=== PATIENT | male | born 1955 | race African-American/Black ===

== ENCOUNTER 2017-04-27 09:35 | Inpatient (IN) | payer OTHER ==
[2017-04-27 10:21] LABS: Urine Appearance Cloudy; Urine Blood 3+ (Negative); Urine Color Amber; Urine Ketones Negative (Negative); Urine Protein 2+(100 mg/dL) (Negative); Urine Specific Gravity 1.016 (1.010-1.030); Urine Urobilinogen Negative (Negative)
[2017-04-27 10:31] LABS: Hematocrit 33 % (42-52); Hemoglobin 9.8 g/dl (14.0-18.0); INR 1.1 (0.77-1.02); Mean Corpuscular HGB Conc 30 g/dl (31-36); Mean Corpuscular Hemoglobin 19 pg (27-31); Mean Platelet Volume 9 um3 (7.4-10.4); Platelet Count 221 10^3/ul (150-450); Red Blood Count 5.14 10^6/ul (4.0-5.4); White Blood Count 7.2 10^3/ul (3.5-10.8)
[2017-04-27 10:32] LABS: Mean Corpuscular Volume 64 fL (80-94); Red Cell Distribution Width 25 % (10.5-15)
--- NOTE | 2017-04-27 10:32 | RAD ---
INDICATION: Altered mental status COMPARISON: None. TECHNIQUE: Contiguous axial sections of the brain were obtained from the skull base to the vertex without contrast. FINDINGS: The ventricles, cisterns and sulci are within normal limits. There is mild periventricular and subcortical white matter hypoattenuation most consistent with chronic microvascular disease. Otherwise, the rosenbaum-white matter differentiation is adequately maintained and there is no sulcal effacement. No significant focal abnormality or mass effect is present. There is no evidence for intracranial hemorrhage. No significant focal osseous abnormality is present. There is mild mucosal thickening of the bilateral ethmoid air cells. The mastoid air cells are well aerated bilaterally. IMPRESSION: CT findings are most consistent with chronic microvascular disease without CT evidence of acute intracranial abnormality.
[2017-04-27 10:40] LABS: EGFR Non-African American 38.2 (>60)
[2017-04-27 11:17] LABS: Monocytes % 6 % (0-13)
[2017-04-27 11:21] LABS: ABS Basophils 0 10^3/ul (0-0.2); ABS Eosinophils 0 10^3/ul (0-0.6); ABS Lymphocytes 0.9 10^3/ul (1.0-4.8); ABS Monocytes 0.4 10^3/ul (0-0.8); ABS Neutrophils 5.8 10^3/ul (1.5-7.7); ABS Nucleated RBC 0 10^3/ul
[2017-04-27] MEDS ORDERED: NS 0.9% 1000 ML* 1,000 ML IV SCH (15:15)
[2017-04-27] MEDS ORDERED: Dextrose 50% Syringe 50 ML* 25 GM/50 ML SYRINGE IV PUSH PRN (15:18)
--- NOTE | 2017-04-27 17:02 | RAD ---
INDICATION: Acute kidney injury COMPARISON: None TECHNIQUE: Real-time ultrasound examination of the bilateral kidneys and urinary bladder including grayscale and Doppler color flow analysis. FINDINGS: The right kidney measures 13.4 x 5.4 x 5.5 cm. At the lower pole of the right kidney there is an anechoic and avascular cyst measuring 3.4 cm in greatest dimension. The left kidney measures 13.3 x 5.4 x 0.9 cm. Adjacent to the collecting system is an anechoic and avascular cyst measuring 2.1 cm in greatest dimension. There is at least one shadowing renal calculus identified in the left kidney. Overall there is increased echogenicity of the renal cortices bilaterally. There is no hydronephrosis bilaterally. IMPRESSION: 1. Increased echogenicity of the renal cortices can be seen in the setting of medical renal disease. 2. Nonobstructing renal calculi noted in the left kidney.
[2017-04-27] MEDS: Insulin LISPRO* 1 UNITS UNIT SUBCUT SCH ×2 (17:38→21:45)
--- NOTE | 2017-04-27 17:57 | ED ---
Leighton Fernandez Natalie, scribed for Jason Dumont MD on 04/27/17 at 1004 . Altered Mental Status - HPI Summary HPI Summary: The pt is a 61 y/o M presenting to the ED c/o left rib pain this morning. Per EMS, the patient was found in his cell in [facility]. EMS couldnt get IV access. The pt is able to ambulate, but uses a wheelchair for long distance movement. Pt additionally c/o left leg pain and lethargy. - History Of Current Complaint Chief Complaint: EDAltMentalStatus Stated Complaint: LETHARGY Time Seen by Provider: 04/27/17 09:36 Hx Obtained From: Patient, EMS Onset/Duration: Still Present Timing: Lasting Hours - started this morning Severity Initially: Moderate Severity Currently: Moderate Character: Lethargy Aggravating Factor(s): Nothing Alleviating Factor(s): Nothing - Allergies/Home Medications Home Medications: Home Medications Cetirizine* [ZyrTEC 10 MG TAB*] 10 mg PO DAILY 04/27/17 [History Confirmed 04/27] Docusate CAP* [Colace Cap*] 200 mg PO DAILY 04/27/17 [History Confirmed 04/27/17 ] Insulin GLARGINE(*) [Lantus(*)] 54 units SUBCUT QPM 04/27/17 [History Confirmed 04/27/17] Lisinopril TAB* [Prinivil TAB*] 20 mg PO DAILY 04/27/17 [History Confirmed 04/27] Potassium Chloride [Potassium Chloride ER] 16 meq PO DAILY 04/27/17 [History Confirmed 04/27/17] amLODIPine TAB* [Norvasc 5 mg TAB*] 10 mg PO DAILY 04/27/17 [History Confirmed 04/27/17] metFORMIN* [Glucophage 500 MG TAB *] 500 mg PO DAILY 04/27/17 [History Confirmed 04/27/17] PMH/Surg Hx/FS Hx/Imm Hx Previously Healthy: No Opthamlomology History: Denies: Hx Legally Blind EENT History: Denies: Hx Deafness Infectious Disease History: No Infectious Disease History: Denies: Traveled Outside the [place] in Last 30 Days - Family History Known Family History: Negative: Hypertension, Respiratory Disease Review of Systems Negative: Fever Positive: Chest Pain - left rib pain Positive: Other - left leg pain Neurological: Other - lethargy All Other Systems Reviewed And Are Negative: Yes Physical Exam - Summary Physical Exam Summary: Appearance: The patient is well-nourished in no acute distress and in no acute pain. Skin: The skin is warm and dry and skin color reflects adequate perfusion. HEENT: The head is normocephalic and atraumatic. The pupils are equal and reactive. The conjunctivae are clear and without drainage. Nares are patent and without drainage. Mouth reveals moist mucous membranes and the throat is without erythema and exudate. The external ears are intact. The ear canals are patent and without drainage. The tympanic membranes are intact. Neck: The neck is supple with full range of motion and non-tender. There are no carotid bruits. There is no neck vein distension. Respiratory: Chest is non-tender. Lungs are clear to auscultation and breath sounds are symmetrical and equal. Cardiovascular: The patient has systolic ejection murmur. There is no peripheral edema and pulses are symmetrical and equal. Abdomen: The abdomen is soft and non-tender. There are normal bowel sounds heard in all four quadrants and there is no organomegaly palpated. Musculoskeletal: There is no back tenderness noted. Extremities are non-tender with full range of motion. There is good capillary refill. There is no peripheral edema or calf tenderness elicited. Neurological: The patient is stuporous but responds to voice. The patient has symmetrical motor strength in all four extremities. Cranial nerves are grossly intact. Deep tendon reflexes are symmetrical and equal in all four extremities. Neuro grossly intact. Psychiatric: The patient has an appropriate affect and does not exhibit any anxiety or depression. Triage Information Reviewed: Yes Vital Signs On Initial Exam: Initial Vitals Temp Pulse Resp BP Pulse Ox 97 F 68 16 122/64 100 04/27/17 09:39 04/27/17 09:39 04/27/17 09:39 04/27/17 09:39 04/27/17 09:39 Vital Signs Reviewed: Yes Diagnostics - Vital Signs Vital Signs Temp Pulse Resp BP Pulse Ox 04/27/17 09:39 97 F 68 16 122/64 100 - Laboratory Lab Results: Lab Results 04/27/17 04/27/17 04/27/17 Range/Units 09:50 09:50 09:50 WBC 7.2 (3.5-10.8) 10^3/ul RBC 5.14 (4.0-5.4) 10^6/ul Hgb 9.8 L (14.0-18.0) g/dl Hct 33 L (42-52) % MCV 64 L (80-94) fL MCH 19 L (27-31) pg MCHC 30 L (31-36) g/dl RDW 25 H (10.5-15) % Plt Count 221 (150-450) 10^3/ul MPV 9 (7.4-10.4) um3 Absolute Neuts (auto) 5.8 (1.5-7.7) 10^3/ul Absolute Lymphs (auto) 0.9 L (1.0-4.8) 10^3/ul Absolute Monos (auto) 0.4 (0-0.8) 10^3/ul Absolute Eos (auto) 0 (0-0.6) 10^3/ul Absolute Basos (auto) 0 (0-0.2) 10^3/ul Absolute Nucleated RBC 0 10^3/ul Neutrophils % 81 (38-83) % Lymphocytes % 13 L (25-47) % Monocytes % 6 (0-13) % Normal RBC Morphology Not Reportable Hypochromasia 1+ Microcytosis 1+ Target Cells 1+ Elliptocytes 1+ Acanthocytes (Spur) 1+ INR (Anticoag Therapy) 1.10 H (0.77-1.02) Sodium 136 (133-145) mmol/L Potassium 4.3 (3.5-5.0) mmol/L Chloride 102 (101-111) mmol/L Carbon Dioxide 28 (22-32) mmol/L Anion Gap 6 (2-11) mmol/L BUN 23 (6-24) mg/dL Creatinine 1.82 H (0.67-1.17) mg/dL Est GFR ( Amer) 49.1 (>60) Est GFR (Non-Af Amer) 38.2 (>60) BUN/Creatinine Ratio 12.6 (8-20) Glucose 229 H (70-100) mg/dL POC Glucose (mg/dL) (70-100) mg/dL Lactic Acid (0.5-2.0) mmol/L Calcium 9.5 (8.6-10.3) mg/dL Total Bilirubin 0.40 (0.2-1.0) mg/dL AST 63 H (13-39) U/L ALT 39 (7-52) U/L Alkaline Phosphatase 73 (34-104) U/L Troponin I 0.03 (<0.04) ng/mL Total Protein 8.4 (6.4-8.9) g/dL Albumin 4.0 (3.2-5.2) g/dL Globulin 4.4 H (2-4) g/dL Albumin/Globulin Ratio 0.9 L (1-3) TSH 1.18 (0.34-5.60) mcIU/mL Urine Color Urine Appearance Urine pH (5-9) Ur Specific [place] (1.010-1.030) Urine Protein (Negative) Urine Ketones (Negative) Urine Blood (Negative) Urine Nitrate (Negative) Urine Bilirubin (Negative) Urine Urobilinogen (Negative) Ur Leukocyte Esterase (Negative) Urine WBC (Auto) (Absent) Urine RBC (Auto) (Absent) Urine Bacteria (Absent) Hyaline Casts (Absent) Urine Glucose (Negative) Urine Opiates Screen (None Detect) Ur Barbiturates Screen (None Detect) Ur Phencyclidine Scrn (None Detect) Ur Amphetamines Screen (None Detect) U Benzodiazepines Scrn (None Detect) Urine Cocaine Screen (None Detect) U Cannabinoids Screen (None Detect) Serum Alcohol < 10 (<10) mg/dL 04/27/17 04/27/17 04/27/17 Range/Units 09:50 09:53 10:04 WBC (3.5-10.8) 10^3/ul RBC (4.0-5.4) 10^6/ul Hgb (14.0-18.0) g/dl Hct (42-52) % MCV (80-94) fL MCH (27-31) pg MCHC (31-36) g/dl RDW (10.5-15) % Plt Count (150-450) 10^3/ul MPV (7.4-10.4) um3 Absolute Neuts (auto) (1.5-7.7) 10^3/ul Absolute Lymphs (auto) (1.0-4.8) 10^3/ul Absolute Monos (auto) (0-0.8) 10^3/ul Absolute Eos (auto) (0-0.6) 10^3/ul Absolute Basos (auto) (0-0.2) 10^3/ul Absolute Nucleated RBC 10^3/ul Neutrophils % (38-83) % Lymphocytes % (25-47) % Monocytes % (0-13) % Normal RBC Morphology Hypochromasia Microcytosis Target Cells Elliptocytes Acanthocytes (Spur) INR (Anticoag Therapy) (0.77-1.02) Sodium (133-145) mmol/L Potassium (3.5-5.0) mmol/L Chloride (101-111) mmol/L Carbon Dioxide (22-32) mmol/L Anion Gap (2-11) mmol/L BUN (6-24) mg/dL Creatinine (0.67-1.17) mg/dL Est GFR ( Amer) (>60) Est GFR (Non-Af Amer) (>60) BUN/Creatinine Ratio (8-20) Glucose (70-100) mg/dL POC Glucose (mg/dL) 251 H (70-100) mg/dL Lactic Acid 2.3 H* (0.5-2.0) mmol/L Calcium (8.6-10.3) mg/dL Total Bilirubin (0.2-1.0) mg/dL AST (13-39) U/L ALT (7-52) U/L Alkaline Phosphatase (34-104) U/L Troponin I (<0.04) ng/mL Total Protein (6.4-8.9) g/dL Albumin (3.2-5.2) g/dL Globulin (2-4) g/dL Albumin/Globulin Ratio (1-3) TSH (0.34-5.60) mcIU/mL Urine Color Urine Appearance Urine pH (5-9) Ur Specific [place] (1.010-1.030) Urine Protein (Negative) Urine Ketones (Negative) Urine Blood (Negative) Urine Nitrate (Negative) Urine Bilirubin (Negative) Urine Urobilinogen (Negative) Ur Leukocyte Esterase (Negative) Urine WBC (Auto) (Absent) Urine RBC (Auto) (Absent) Urine Bacteria (Absent) Hyaline Casts (Absent) Urine Glucose (Negative) Urine Opiates Screen None detected (None Detect) Ur Barbiturates Screen None detected (None Detect) Ur Phencyclidine Scrn None detected (None Detect) Ur Amphetamines Screen None detected (None Detect) U Benzodiazepines Scrn None detected (None Detect) Urine Cocaine Screen None detected (None Detect) U Cannabinoids Screen None detected (None Detect) Serum Alcohol (<10) mg/dL 04/27/17 Range/Units 10:04 WBC (3.5-10.8) 10^3/ul RBC (4.0-5.4) 10^6/ul Hgb (14.0-18.0) g/dl Hct (42-52) % MCV (80-94) fL MCH (27-31) pg MCHC (31-36) g/dl RDW (10.5-15) % Plt Count (150-450) 10^3/ul MPV (7.4-10.4) um3 Absolute Neuts (auto) (1.5-7.7) 10^3/ul Absolute Lymphs (auto) (1.0-4.8) 10^3/ul Absolute Monos (auto) (0-0.8) 10^3/ul Absolute Eos (auto) (0-0.6) 10^3/ul Absolute Basos (auto) (0-0.2) 10^3/ul Absolute Nucleated RBC 10^3/ul Neutrophils % (38-83) % Lymphocytes % (25-47) % Monocytes % (0-13) % Normal RBC Morphology Hypochromasia Microcytosis Target Cells Elliptocytes Acanthocytes (Spur) INR (Anticoag Therapy) (0.77-1.02) Sodium (133-145) mmol/L Potassium (3.5-5.0) mmol/L Chloride (101-111) mmol/L Carbon Dioxide (22-32) mmol/L Anion Gap (2-11) mmol/L BUN (6-24) mg/dL Creatinine (0.67-1.17) mg/dL Est GFR ( Amer) (>60) Est GFR (Non-Af Amer) (>60) BUN/Creatinine Ratio (8-20) Glucose (70-100) mg/dL POC Glucose (mg/dL) (70-100) mg/dL Lactic Acid (0.5-2.0) mmol/L Calcium (8.6-10.3) mg/dL Total Bilirubin (0.2-1.0) mg/dL AST (13-39) U/L ALT (7-52) U/L Alkaline Phosphatase (34-104) U/L Troponin I (<0.04) ng/mL Total Protein (6.4-8.9) g/dL Albumin (3.2-5.2) g/dL Globulin (2-4) g/dL Albumin/Globulin Ratio (1-3) TSH (0.34-5.60) mcIU/mL Urine Color [place] Urine Appearance Cloudy Urine pH 5.0 (5-9) Ur Specific [place] 1.016 (1.010-1.030) Urine Protein 2+(100 mg/dl) H (Negative) Urine Ketones Negative (Negative) Urine Blood 3+ H (Negative) Urine Nitrate Negative (Negative) Urine Bilirubin Negative (Negative) Urine Urobilinogen Negative (Negative) Ur Leukocyte Esterase Negative (Negative) Urine WBC (Auto) 1+(6-10/hpf) H (Absent) Urine RBC (Auto) Trace(0-2/hpf) (Absent) Urine Bacteria Absent (Absent) Hyaline Casts Present H (Absent) Urine Glucose 1+(50 mg/dl) H (Negative) Urine Opiates Screen (None Detect) Ur Barbiturates Screen (None Detect) Ur Phencyclidine Scrn (None Detect) Ur Amphetamines Screen (None Detect) U Benzodiazepines Scrn (None Detect) Urine Cocaine Screen (None Detect) U Cannabinoids Screen (None Detect) Serum Alcohol (<10) mg/dL Result Diagrams: 04/27/17 09:50 04/27/17 09:50 Lab Statement: Any lab studies that have been ordered have been reviewed, and results considered in the medical decision making process. - CT Brain CT CT Interpretation: Positive (See Comments) - CT findings are most consistent with chronic microvascular disease without CT evidence of acute intracranial abnormality. ED physician has reviewed this report. CT Interpretation Completed By: Radiologist - EKG 09:41 Cardiac Rate: NL EKG Rhythm: Sinus Rhythm - 61 BPM EKG Interpretation: Nml . LBBB. Altered Mental Statu Course/Dx - Course Course Of Treatment: Mr. Pressley presents with a difficult evaluation. He doesn' t give a good history as he is confused (he variously tells me he has left neck , chest or leg pain). His W/U is nonspecific and he is being admitted for further W/U to the hospitalist service. - Diagnoses Discharge Diagnoses: Altered mental status Discharge - Discharge Plan Condition: Stable Disposition: ADMITTED TO [facility] The documentation as recorded by the Leighton thomas Natalie accurately reflects the service I personally performed and the decisions made by me, Jason Dumont MD.
[2017-04-27] MEDS ORDERED: Insulin GLARGINE(*) 1 UNITS UNIT SUBCUT SCH (18:00)
--- NOTE | 2017-04-27 20:18 | HP ---
CC: Dr. Fregoso / [place] * HISTORY AND PHYSICAL: DATE OF ADMISSION: 04/27/17 PRIMARY CARE PROVIDER: Dr. Fregoso. CHIEF COMPLAINT: Altered mental status. HISTORY OF PRESENT ILLNESS: Mr. Pressley is a 61-year-old male, who is currently incarcerated at [facility], who also has a history of type 2 diabetes and hypertension, who presents to the emergency room with altered mental status. The patient is quite sleepy upon my entering the room. He does awaken and attempts to answer questions; however, he does not appear to answer questions appropriately. I have a difficult time understanding what he is trying to tell me. The patient does state, however, he felt fine over the last few days, but does not know what happened on the day of admission. He denies any shortness of breath at this point. He is able to tell me his left shoulder hurts, but that is chronic. The rest of his history is really unobtainable as the patient is not making any sense. PAST MEDICAL HISTORY: 1. Type 2 diabetes. 2. Hypertension. 3. History of hepatitis, though this is not specified in the paperwork from [place]. 4. Positive PPD. PAST SURGICAL HISTORY: Unknown. MEDICATIONS: 1. Metformin 500 mg p.o. daily. 2. Norvasc 10 mg p.o. daily. 3. Lisinopril 20 mg p.o. daily. 4. Potassium chloride 8 mEq, 2 tabs p.o. daily. 5. Lantus 54 units subcutaneous q.h.s. 6. Colace 200 mg p.o. daily. 7. Zyrtec 10 mg p.o. daily. ALLERGIES: Are not recorded and the patient at this point is not able to tell me what he is allergic to. FAMILY HISTORY: Unobtainable. SOCIAL HISTORY: The patient is able to tell me he has smoked in the past. He is unable to tell me how long he has smoked for. He is currently incarcerated at [facility]. REVIEW OF SYSTEMS: Attempted review of systems is as per HPI. Otherwise, the patient does not provider reliable answers to the rest of my questions. PHYSICAL EXAMINATION GENERAL: The patient is a well-developed, middle-aged male, lying flat in the bed, somnolent, but arousable, and in no acute distress. VITAL SIGNS: Blood pressure 101/65, pulse 74, respirations 13, temp 97, O2 sat 96% on room air. HEENT: The left pupil is smaller than the right. Extraocular muscles appear to be intact. Oropharynx is clear. Oral mucosa is moist. The patient has very poor dentition. There is no submandibular, cervical, or supraclavicular adenopathy. Thyroid is not enlarged. No thyroid nodules are noted. PULMONARY: Breath sounds are diminished in all lung trinh, but appear to be clear. CARDIAC: Normal S1, S2. Regular rate and rhythm with a 2/6 systolic murmur heard best at the left mid sternal border. There is no lower extremity edema. ABDOMEN: Bowel sounds are present. Abdomen is soft, nontender, nondistended. MUSCULOSKELETAL: The patient is handcuffed via the right arm to the bed and has shackles on his ankles. No obvious joint deformities are noted. NEURO: Cranial nerves II through XII are grossly intact. Sensation appears to be intact. Strength is not tested due to the patient being shackled and handcuffed to the bed. PSYCH: The patient is somnolent, but arousable. He is confused. SKIN: Warm and dry. I do not appreciate any rashes or wounds. DIAGNOSTIC STUDIES/LAB DATA: WBC 7.2, hemoglobin 9.8, hematocrit 33, platelets 221. INR 1.10. Sodium 136, potassium 4.3, chloride 102, CO2 28, BUN 23, creatinine 1.82, glucose 229, lactic acid 2.3, calcium 9.5. Bilirubin 0.4, AST 63, ALT 39, alk phos 73. Troponin 0.03. Albumin 4.0. TSH 1.18. Urinalysis reveals cloudy urine with specific gravity of 1.016, 2+ protein, 3+ blood, 1+ wbc, positive for hyaline cast. Urine drug screen negative, serum alcohol less than 10. EKG reveals normal sinus rhythm with intraventricular conduction delay, but no acute ST-T wave abnormalities. CT brain most consistent with chronic microvascular disease without CT evidence of acute intracranial abnormality. ASSESSMENT AND PLAN: Mr. Pressley is a 61-year-old male, who has a history of type 2 diabetes and hypertension who presents to the emergency room with altered mental status and lethargy. 1. Altered mental status with lethargy. The etiology of this is not clear. The patient's lab work does not reveal any direct evidence for the cause of this. I will go ahead and check an ammonia level. The patient does have a mildly elevated lactic acid of 2.3 and creatinine of 1.82 is greater than his baseline in December 2016 of 0.75. Perhaps, the patient is just dehydrated. I am concerned that perhaps he could have gotten in to an illicit substance. The patient does deny this. The patient will be hydrated overnight and his mental status will be monitored. Neuro checks will be obtained every 4 hours. If the patient fails to respond, we would consider an EEG; however, we will need to get a neuro consult to get this performed over the weekend. There are no clear signs of infection at this point. Thus, I will hold off on antibiotic therapy. 2. Hypertension. The patient's blood pressure is under excellent control. In fact, he is on the lower side. I am going to hold his lisinopril as his creatinine is elevated; however, I will continue his amlodipine withhold parameters. 3. Acute kidney injury. The patient's baseline creatinine is 0.75. His creatinine on admission today is greater than 2 times his baseline. The patient will be receiving normal saline at 125 mL per hour. Followup BMP will be obtained tomorrow morning. The patient's BUN is not significantly elevated and therefore I do not believe that this is likely contributing to his altered mental status. I suspect his acute kidney injury is secondary to volume depletion especially given the elevated lactic acid. 4. Type 2 diabetes. The patient's blood sugars will be monitored a.c., h.s. The patient will be on only a clear liquid diet for now given his lethargy and lack of safety of swallowing. The patient will be maintained on his usual dose of Lantus and will have a lispro sliding scale. His metformin will be held. With the patient's creatinine greater than 1.5, it is possible that metformin may have led to the mild lactic acidosis. 5. DVT prophylaxis. According to the Adult Thrombosis Prophylaxis Risk Factor Assessment Guide, the patient has a total risk factor score of 2, making him moderate risk. He will be placed on heparin 5000 units subcutaneous q.8 hours. 6. Code status is full. TIME SPENT: Sixty-five minutes was spent admitting this patient. [id number]/[facility] #: [id number]
[2017-04-27] MEDS: Heparin VIAL(*) 5000 UNITS/ML VIAL (FIVE THOUSAND) SUBCUT SCH (21:41)
[2017-04-28] MEDS: Heparin VIAL(*) 5000 UNITS/ML VIAL (FIVE THOUSAND) SUBCUT SCH ×3 (05:36→21:16)
[2017-04-28] MEDS: Insulin LISPRO* 1 UNITS UNIT SUBCUT SCH ×4 (08:16→21:14)
[2017-04-28 08:21] LABS: Hematocrit 30 % (42-52); Hemoglobin 9.1 g/dl (14.0-18.0); Mean Corpuscular HGB Conc 30 g/dl (31-36); Mean Corpuscular Hemoglobin 19 pg (27-31); Mean Corpuscular Volume 63 fL (80-94); Mean Platelet Volume 8 um3 (7.4-10.4); Platelet Count 191 10^3/ul (150-450); Red Blood Count 4.79 10^6/ul (4.0-5.4); Red Cell Distribution Width 24 % (10.5-15); White Blood Count 6.8 10^3/ul (3.5-10.8)
[2017-04-28] MEDS: Docusate CAP* 100 MG PO SCH (08:32)
[2017-04-28] MEDS: amLODIPine TAB* 5 MG PO SCH (08:32)
[2017-04-28 08:39] LABS: EGFR Non-African American 81.9 (>60)
[2017-04-28] MEDS ORDERED: Potassium Chlor TAB* 20 MEQ TAB.ER PO ONE (08:42)
--- NOTE | 2017-04-28 08:47 | PN ---
Subjective Date of Service: 04/28/17 Interval History: Pt is feeling well this AM. He wants "real food." He denies any pain. No SOB. The intermediate guards do not think he is at his baseline mental status. Objective Active Medications: Amlodipine Besylate (Norvasc Tab*) 10 mg PO DAILY [facility] Last Admin: 04/28/17 08:32 Dose: 10 mg Dextrose (D50w Syringe 50 Ml*) 12.5 gm IV PUSH .FOR FS < 60 - SS PRN PRN Reason: FS < 60 Docusate Sodium (Colace Cap*) 200 mg PO DAILY [facility] Last Admin: 04/28/17 08:32 Dose: 200 mg Heparin Sodium (Porcine) (Heparin Vial(*)) 5,000 units SUBCUT Q8HR [facility] Last Admin: 04/28/17 05:36 Dose: 5,000 units Sodium Chloride (Ns 0.9% 1000 Ml*) 1,000 mls @ 125 mls/hr IV PER RATE [facility] Last Admin: 04/27/17 17:52 Dose: 125 mls/hr Insulin Glargine (Lantus(*)) 54 units SUBCUT QPM [facility] Last Admin: 04/27/17 17:54 Dose: 54 unit Insulin Human Lispro (Humalog*) 0 units SUBCUT ACHS [facility] PRN Reason: Protocol Last Admin: 04/28/17 08:16 Dose: Not Given Vital Signs - 8 hr 04/28/17 06:28 Temperature 97.7 F Pulse Rate 59 Respiratory 17 Rate Blood Pressure 147/70 (mmHg) O2 Sat by Pulse 100 Oximetry Oxygen Devices in Use Now: None Appearance: Middle aged male sitting up in bed, awake, alert, NAD Eyes: No Scleral Icterus Ears/Nose/Mouth/Throat: Mucous Membranes Moist Respiratory: Symmetrical Chest Expansion and Respiratory Effort, Clear to Auscultation Cardiovascular: RRR, No Edema, - - III/ systolic murmur heard best at the L mid sternal border Abdominal: NL Sounds; No Tenderness; No Distention Extremities: No Clubbing, Cyanosis Skin: No Rash or Ulcers, No Nodules or Sclerosis Neurological: - - alert, oriented to being in a hospital but no clear which one , when asked if he had been eating/drinking normally he stated no as he had no money to go to the store to buy food but then when I asked him if he got fed at the intermediate he stated yes and that he had been eating Result Diagrams: 04/28/17 08:08 04/28/17 08:08 Additional Lab and Data: Lab Results 04/27/17 04/27/17 04/27/17 Range/Units 09:50 09:50 09:50 WBC 7.2 (3.5-10.8) 10^3/ul RBC 5.14 (4.0-5.4) 10^6/ul Hgb 9.8 L (14.0-18.0) g/dl Hct 33 L (42-52) % MCV 64 L (80-94) fL MCH 19 L (27-31) pg MCHC 30 L (31-36) g/dl RDW 25 H (10.5-15) % Plt Count 221 (150-450) 10^3/ul MPV 9 (7.4-10.4) um3 Absolute Neuts (auto) 5.8 (1.5-7.7) 10^3/ul Absolute Lymphs (auto) 0.9 L (1.0-4.8) 10^3/ul Absolute Monos (auto) 0.4 (0-0.8) 10^3/ul Absolute Eos (auto) 0 (0-0.6) 10^3/ul Absolute Basos (auto) 0 (0-0.2) 10^3/ul Absolute Nucleated RBC 0 10^3/ul Neutrophils % 81 (38-83) % Lymphocytes % 13 L (25-47) % Monocytes % 6 (0-13) % Normal RBC Morphology Not Reportable Hypochromasia 1+ Microcytosis 1+ Target Cells 1+ Elliptocytes 1+ Acanthocytes (Spur) 1+ INR (Anticoag Therapy) 1.10 H (0.77-1.02) Sodium 136 (133-145) mmol/L Potassium 4.3 (3.5-5.0) mmol/L Chloride 102 (101-111) mmol/L Carbon Dioxide 28 (22-32) mmol/L Anion Gap 6 (2-11) mmol/L BUN 23 (6-24) mg/dL Creatinine 1.82 H (0.67-1.17) mg/dL Est GFR ( Amer) 49.1 (>60) Est GFR (Non-Af Amer) 38.2 (>60) BUN/Creatinine Ratio 12.6 (8-20) Glucose 229 H (70-100) mg/dL POC Glucose (mg/dL) (70-100) mg/dL Lactic Acid (0.5-2.0) mmol/L Calcium 9.5 (8.6-10.3) mg/dL Total Bilirubin 0.40 (0.2-1.0) mg/dL AST 63 H (13-39) U/L ALT 39 (7-52) U/L Alkaline Phosphatase 73 (34-104) U/L Troponin I 0.03 (<0.04) ng/mL Total Protein 8.4 (6.4-8.9) g/dL Albumin 4.0 (3.2-5.2) g/dL Globulin 4.4 H (2-4) g/dL Albumin/Globulin Ratio 0.9 L (1-3) TSH 1.18 (0.34-5.60) mcIU/mL Urine Color Urine Appearance Urine pH (5-9) Ur Specific [place] (1.010-1.030) Urine Protein (Negative) Urine Ketones (Negative) Urine Blood (Negative) Urine Nitrate (Negative) Urine Bilirubin (Negative) Urine Urobilinogen (Negative) Ur Leukocyte Esterase (Negative) Urine WBC (Auto) (Absent) Urine RBC (Auto) (Absent) Urine Bacteria (Absent) Hyaline Casts (Absent) Urine Glucose (Negative) Urine Opiates Screen (None Detect) Ur Barbiturates Screen (None Detect) Ur Phencyclidine Scrn (None Detect) Ur Amphetamines Screen (None Detect) U Benzodiazepines Scrn (None Detect) Urine Cocaine Screen (None Detect) U Cannabinoids Screen (None Detect) Serum Alcohol < 10 (<10) mg/dL 04/27/17 04/27/17 04/27/17 Range/Units 09:50 09:53 10:04 WBC (3.5-10.8) 10^3/ul RBC (4.0-5.4) 10^6/ul Hgb (14.0-18.0) g/dl Hct (42-52) % MCV (80-94) fL MCH (27-31) pg MCHC (31-36) g/dl RDW (10.5-15) % Plt Count (150-450) 10^3/ul MPV (7.4-10.4) um3 Absolute Neuts (auto) (1.5-7.7) 10^3/ul Absolute Lymphs (auto) (1.0-4.8) 10^3/ul Absolute Monos (auto) (0-0.8) 10^3/ul Absolute Eos (auto) (0-0.6) 10^3/ul Absolute Basos (auto) (0-0.2) 10^3/ul Absolute Nucleated RBC 10^3/ul Neutrophils % (38-83) % Lymphocytes % (25-47) % Monocytes % (0-13) % Normal RBC Morphology Hypochromasia Microcytosis Target Cells Elliptocytes Acanthocytes (Spur) INR (Anticoag Therapy) (0.77-1.02) Sodium (133-145) mmol/L Potassium (3.5-5.0) mmol/L Chloride (101-111) mmol/L Carbon Dioxide (22-32) mmol/L Anion Gap (2-11) mmol/L BUN (6-24) mg/dL Creatinine (0.67-1.17) mg/dL Est GFR ( Amer) (>60) Est GFR (Non-Af Amer) (>60) BUN/Creatinine Ratio (8-20) Glucose (70-100) mg/dL POC Glucose (mg/dL) 251 H (70-100) mg/dL Lactic Acid 2.3 H* (0.5-2.0) mmol/L Calcium (8.6-10.3) mg/dL Total Bilirubin (0.2-1.0) mg/dL AST (13-39) U/L ALT (7-52) U/L Alkaline Phosphatase (34-104) U/L Troponin I (<0.04) ng/mL Total Protein (6.4-8.9) g/dL Albumin (3.2-5.2) g/dL Globulin (2-4) g/dL Albumin/Globulin Ratio (1-3) TSH (0.34-5.60) mcIU/mL Urine Color Urine Appearance Urine pH (5-9) Ur Specific [place] (1.010-1.030) Urine Protein (Negative) Urine Ketones (Negative) Urine Blood (Negative) Urine Nitrate (Negative) Urine Bilirubin (Negative) Urine Urobilinogen (Negative) Ur Leukocyte Esterase (Negative) Urine WBC (Auto) (Absent) Urine RBC (Auto) (Absent) Urine Bacteria (Absent) Hyaline Casts (Absent) Urine Glucose (Negative) Urine Opiates Screen None detected (None Detect) Ur Barbiturates Screen None detected (None Detect) Ur Phencyclidine Scrn None detected (None Detect) Ur Amphetamines Screen None detected (None Detect) U Benzodiazepines Scrn None detected (None Detect) Urine Cocaine Screen None detected (None Detect) U Cannabinoids Screen None detected (None Detect) Serum Alcohol (<10) mg/dL 04/27/17 Range/Units 10:04 WBC (3.5-10.8) 10^3/ul RBC (4.0-5.4) 10^6/ul Hgb (14.0-18.0) g/dl Hct (42-52) % MCV (80-94) fL MCH (27-31) pg MCHC (31-36) g/dl RDW (10.5-15) % Plt Count (150-450) 10^3/ul MPV (7.4-10.4) um3 Absolute Neuts (auto) (1.5-7.7) 10^3/ul Absolute Lymphs (auto) (1.0-4.8) 10^3/ul Absolute Monos (auto) (0-0.8) 10^3/ul Absolute Eos (auto) (0-0.6) 10^3/ul Absolute Basos (auto) (0-0.2) 10^3/ul Absolute Nucleated RBC 10^3/ul Neutrophils % (38-83) % Lymphocytes % (25-47) % Monocytes % (0-13) % Normal RBC Morphology Hypochromasia Microcytosis Target Cells Elliptocytes Acanthocytes (Spur) INR (Anticoag Therapy) (0.77-1.02) Sodium (133-145) mmol/L Potassium (3.5-5.0) mmol/L Chloride (101-111) mmol/L Carbon Dioxide (22-32) mmol/L Anion Gap (2-11) mmol/L BUN (6-24) mg/dL Creatinine (0.67-1.17) mg/dL Est GFR ( Amer) (>60) Est GFR (Non-Af Amer) (>60) BUN/Creatinine Ratio (8-20) Glucose (70-100) mg/dL POC Glucose (mg/dL) (70-100) mg/dL Lactic Acid (0.5-2.0) mmol/L Calcium (8.6-10.3) mg/dL Total Bilirubin (0.2-1.0) mg/dL AST (13-39) U/L ALT (7-52) U/L Alkaline Phosphatase (34-104) U/L Troponin I (<0.04) ng/mL Total Protein (6.4-8.9) g/dL Albumin (3.2-5.2) g/dL Globulin (2-4) g/dL Albumin/Globulin Ratio (1-3) TSH (0.34-5.60) mcIU/mL Urine Color Kassy Urine Appearance Cloudy Urine pH 5.0 (5-9) Ur Specific [place] 1.016 (1.010-1.030) Urine Protein 2+(100 mg/dl) H (Negative) Urine Ketones Negative (Negative) Urine Blood 3+ H (Negative) Urine Nitrate Negative (Negative) Urine Bilirubin Negative (Negative) Urine Urobilinogen Negative (Negative) Ur Leukocyte Esterase Negative (Negative) Urine WBC (Auto) 1+(6-10/hpf) H (Absent) Urine RBC (Auto) Trace(0-2/hpf) (Absent) Urine Bacteria Absent (Absent) Hyaline Casts Present H (Absent) Urine Glucose 1+(50 mg/dl) H (Negative) Urine Opiates Screen (None Detect) Ur Barbiturates Screen (None Detect) Ur Phencyclidine Scrn (None Detect) Ur Amphetamines Screen (None Detect) U Benzodiazepines Scrn (None Detect) Urine Cocaine Screen (None Detect) U Cannabinoids Screen (None Detect) Serum Alcohol (<10) mg/dL Assess/Plan/Problems-Billing Mr Pressley is a 61 yo M currently incarcerated at [facility] who has a h/o HTN and type II DM who was brought to the ER for lethargy and confusion. - Patient Problems (1) Altered mental state Current Visit: Yes Status: Acute Code(s): R41.82 - ALTERED MENTAL STATUS, UNSPECIFIED SNOMED Code(s): 075618833 Comment: Unclear what has led to his AMS. Lab work except the elevated creatinine was normal. I question mild dehydration as the cause of some of his lethargy/confusion. This am he remains confused but he has been hypoglycemic. Will get blood sugars improved and follow up his mental status. If better by this afternoon will d/c pt back to the intermediate. CT brain negative for acute finding and no evidence of infection. Ammonia level normal. (2) Type II diabetes mellitus Current Visit: Yes Status: Acute Comment: Blood sugar this AM quite low but he was not with it last night to eat much. Will monitor blood sugars this AM and if stable this afternoon possibly home if his mental status is improved further. (3) HTN (hypertension) Current Visit: Yes Status: Acute Code(s): I10 - ESSENTIAL (PRIMARY) HYPERTENSION SNOMED Code(s): 91040502 Comment: BP mildly elevated. Will monitor BP through today after he receives his morning medications. (4) STAN (acute kidney injury) Current Visit: Yes Status: Acute Code(s): N17.9 - ACUTE KIDNEY FAILURE, UNSPECIFIED SNOMED Code(s): 57217563 Comment: Likely pre-renal as the patient's creatinine has normalized with IVF hydration. Renal ultrasound negative for obstruction. (5) DVT prophylaxis Current Visit: Yes Status: Acute Code(s): JHB2992 - SNOMED Code(s): 405610917 Comment: SQ heparin (6) Full code status Current Visit: Yes Status: Acute Code(s): Z78.9 - OTHER SPECIFIED HEALTH STATUS SNOMED Code(s): 248926299
[2017-04-28] MEDS ORDERED: Lisinopril TAB* 10 MG PO SCH (09:00)
[2017-04-28] MEDS ORDERED: Insulin GLARGINE(*) 1 UNITS UNIT SUBCUT SCH (21:00)
[2017-04-28] MEDS ORDERED: Acetaminophen TAB* 325 MG ONE (21:08)
[2017-04-28] MEDS: Acetaminophen TAB* 325 MG PO PRN (21:12)
[2017-04-29] MEDS: Heparin VIAL(*) 5000 UNITS/ML VIAL (FIVE THOUSAND) SUBCUT SCH ×3 (05:50→21:40)
[2017-04-29] MEDS: Insulin LISPRO* 1 UNITS UNIT SUBCUT SCH ×4 (08:04→21:39)
[2017-04-29] MEDS: amLODIPine TAB* 5 MG PO SCH (10:01)
[2017-04-29] MEDS: Docusate CAP* 100 MG PO SCH (10:01)
--- NOTE | 2017-04-29 11:14 | PN ---
Subjective Date of Service: 04/29/17 Interval History: Pt is feeling poorly. When asked why he states he is hungry and he feels cold. He denies headache, cough, sputum, dysuria. Objective Active Medications: Acetaminophen (Tylenol Tab*) 650 mg PO Q4H PRN PRN Reason: PAIN Last Admin: 04/28/17 21:12 Dose: 650 mg Amlodipine Besylate (Norvasc Tab*) 10 mg PO DAILY [facility] Last Admin: 04/29/17 10:01 Dose: 10 mg Dextrose (D50w Syringe 50 Ml*) 12.5 gm IV PUSH .FOR FS < 60 - SS PRN PRN Reason: FS < 60 Docusate Sodium (Colace Cap*) 200 mg PO DAILY [facility] Last Admin: 04/29/17 10:01 Dose: 200 mg Heparin Sodium (Porcine) (Heparin Vial(*)) 5,000 units SUBCUT Q8HR [facility] Last Admin: 04/29/17 05:50 Dose: 5,000 units Sodium Chloride (Ns 0.9% 1000 Ml*) 1,000 mls @ 125 mls/hr IV PER RATE [facility] Last Admin: 04/27/17 17:52 Dose: 125 mls/hr Insulin Glargine (Lantus(*)) 40 units SUBCUT QPM [facility] Last Admin: 04/28/17 21:16 Dose: 40 units Insulin Human Lispro (Humalog*) 0 units SUBCUT ACHS [facility] PRN Reason: Protocol Last Admin: 04/29/17 08:04 Dose: Not Given Vital Signs - 8 hr 04/29/17 04/29/17 04/29/17 03:17 07:54 07:56 Temperature 99.4 F 98.5 F Pulse Rate 68 36 Respiratory 16 16 16 Rate Blood Pressure 148/52 119/56 (mmHg) O2 Sat by Pulse 100 100 Oximetry 04/29/17 08:02 Temperature Pulse Rate 60 Respiratory Rate Blood Pressure (mmHg) O2 Sat by Pulse Oximetry Oxygen Devices in Use Now: None Appearance: Middle aged male lying in bed, NAD Eyes: No Scleral Icterus Ears/Nose/Mouth/Throat: Mucous Membranes Moist Respiratory: Symmetrical Chest Expansion and Respiratory Effort, Clear to Auscultation Cardiovascular: NL Sounds; No Murmurs; No JVD, RRR, No Edema Abdominal: NL Sounds; No Tenderness; No Distention Extremities: No Clubbing, Cyanosis Skin: No Rash or Ulcers, No Nodules or Sclerosis Neurological: Alert and Oriented x 3 Result Diagrams: 04/28/17 08:08 04/28/17 08:08 Additional Lab and Data: Lab Results 04/27/17 04/27/17 04/27/17 Range/Units 09:50 09:50 09:50 WBC 7.2 (3.5-10.8) 10^3/ul RBC 5.14 (4.0-5.4) 10^6/ul Hgb 9.8 L (14.0-18.0) g/dl Hct 33 L (42-52) % MCV 64 L (80-94) fL MCH 19 L (27-31) pg MCHC 30 L (31-36) g/dl RDW 25 H (10.5-15) % Plt Count 221 (150-450) 10^3/ul MPV 9 (7.4-10.4) um3 Absolute Neuts (auto) 5.8 (1.5-7.7) 10^3/ul Absolute Lymphs (auto) 0.9 L (1.0-4.8) 10^3/ul Absolute Monos (auto) 0.4 (0-0.8) 10^3/ul Absolute Eos (auto) 0 (0-0.6) 10^3/ul Absolute Basos (auto) 0 (0-0.2) 10^3/ul Absolute Nucleated RBC 0 10^3/ul Neutrophils % 81 (38-83) % Lymphocytes % 13 L (25-47) % Monocytes % 6 (0-13) % Normal RBC Morphology Not Reportable Hypochromasia 1+ Microcytosis 1+ Target Cells 1+ Elliptocytes 1+ Acanthocytes (Spur) 1+ INR (Anticoag Therapy) 1.10 H (0.77-1.02) Sodium 136 (133-145) mmol/L Potassium 4.3 (3.5-5.0) mmol/L Chloride 102 (101-111) mmol/L Carbon Dioxide 28 (22-32) mmol/L Anion Gap 6 (2-11) mmol/L BUN 23 (6-24) mg/dL Creatinine 1.82 H (0.67-1.17) mg/dL Est GFR ( Amer) 49.1 (>60) Est GFR (Non-Af Amer) 38.2 (>60) BUN/Creatinine Ratio 12.6 (8-20) Glucose 229 H (70-100) mg/dL POC Glucose (mg/dL) (70-100) mg/dL Lactic Acid (0.5-2.0) mmol/L Calcium 9.5 (8.6-10.3) mg/dL Total Bilirubin 0.40 (0.2-1.0) mg/dL AST 63 H (13-39) U/L ALT 39 (7-52) U/L Alkaline Phosphatase 73 (34-104) U/L Troponin I 0.03 (<0.04) ng/mL Total Protein 8.4 (6.4-8.9) g/dL Albumin 4.0 (3.2-5.2) g/dL Globulin 4.4 H (2-4) g/dL Albumin/Globulin Ratio 0.9 L (1-3) TSH 1.18 (0.34-5.60) mcIU/mL Urine Color Urine Appearance Urine pH (5-9) Ur Specific [place] (1.010-1.030) Urine Protein (Negative) Urine Ketones (Negative) Urine Blood (Negative) Urine Nitrate (Negative) Urine Bilirubin (Negative) Urine Urobilinogen (Negative) Ur Leukocyte Esterase (Negative) Urine WBC (Auto) (Absent) Urine RBC (Auto) (Absent) Urine Bacteria (Absent) Hyaline Casts (Absent) Urine Glucose (Negative) Urine Opiates Screen (None Detect) Ur Barbiturates Screen (None Detect) Ur Phencyclidine Scrn (None Detect) Ur Amphetamines Screen (None Detect) U Benzodiazepines Scrn (None Detect) Urine Cocaine Screen (None Detect) U Cannabinoids Screen (None Detect) Serum Alcohol < 10 (<10) mg/dL 04/27/17 04/27/17 04/27/17 Range/Units 09:50 09:53 10:04 WBC (3.5-10.8) 10^3/ul RBC (4.0-5.4) 10^6/ul Hgb (14.0-18.0) g/dl Hct (42-52) % MCV (80-94) fL MCH (27-31) pg MCHC (31-36) g/dl RDW (10.5-15) % Plt Count (150-450) 10^3/ul MPV (7.4-10.4) um3 Absolute Neuts (auto) (1.5-7.7) 10^3/ul Absolute Lymphs (auto) (1.0-4.8) 10^3/ul Absolute Monos (auto) (0-0.8) 10^3/ul Absolute Eos (auto) (0-0.6) 10^3/ul Absolute Basos (auto) (0-0.2) 10^3/ul Absolute Nucleated RBC 10^3/ul Neutrophils % (38-83) % Lymphocytes % (25-47) % Monocytes % (0-13) % Normal RBC Morphology Hypochromasia Microcytosis Target Cells Elliptocytes Acanthocytes (Spur) INR (Anticoag Therapy) (0.77-1.02) Sodium (133-145) mmol/L Potassium (3.5-5.0) mmol/L Chloride (101-111) mmol/L Carbon Dioxide (22-32) mmol/L Anion Gap (2-11) mmol/L BUN (6-24) mg/dL Creatinine (0.67-1.17) mg/dL Est GFR ( Amer) (>60) Est GFR (Non-Af Amer) (>60) BUN/Creatinine Ratio (8-20) Glucose (70-100) mg/dL POC Glucose (mg/dL) 251 H (70-100) mg/dL Lactic Acid 2.3 H* (0.5-2.0) mmol/L Calcium (8.6-10.3) mg/dL Total Bilirubin (0.2-1.0) mg/dL AST (13-39) U/L ALT (7-52) U/L Alkaline Phosphatase (34-104) U/L Troponin I (<0.04) ng/mL Total Protein (6.4-8.9) g/dL Albumin (3.2-5.2) g/dL Globulin (2-4) g/dL Albumin/Globulin Ratio (1-3) TSH (0.34-5.60) mcIU/mL Urine Color Urine Appearance Urine pH (5-9) Ur Specific [place] (1.010-1.030) Urine Protein (Negative) Urine Ketones (Negative) Urine Blood (Negative) Urine Nitrate (Negative) Urine Bilirubin (Negative) Urine Urobilinogen (Negative) Ur Leukocyte Esterase (Negative) Urine WBC (Auto) (Absent) Urine RBC (Auto) (Absent) Urine Bacteria (Absent) Hyaline Casts (Absent) Urine Glucose (Negative) Urine Opiates Screen None detected (None Detect) Ur Barbiturates Screen None detected (None Detect) Ur Phencyclidine Scrn None detected (None Detect) Ur Amphetamines Screen None detected (None Detect) U Benzodiazepines Scrn None detected (None Detect) Urine Cocaine Screen None detected (None Detect) U Cannabinoids Screen None detected (None Detect) Serum Alcohol (<10) mg/dL 04/27/17 Range/Units 10:04 WBC (3.5-10.8) 10^3/ul RBC (4.0-5.4) 10^6/ul Hgb (14.0-18.0) g/dl Hct (42-52) % MCV (80-94) fL MCH (27-31) pg MCHC (31-36) g/dl RDW (10.5-15) % Plt Count (150-450) 10^3/ul MPV (7.4-10.4) um3 Absolute Neuts (auto) (1.5-7.7) 10^3/ul Absolute Lymphs (auto) (1.0-4.8) 10^3/ul Absolute Monos (auto) (0-0.8) 10^3/ul Absolute Eos (auto) (0-0.6) 10^3/ul Absolute Basos (auto) (0-0.2) 10^3/ul Absolute Nucleated RBC 10^3/ul Neutrophils % (38-83) % Lymphocytes % (25-47) % Monocytes % (0-13) % Normal RBC Morphology Hypochromasia Microcytosis Target Cells Elliptocytes Acanthocytes (Spur) INR (Anticoag Therapy) (0.77-1.02) Sodium (133-145) mmol/L Potassium (3.5-5.0) mmol/L Chloride (101-111) mmol/L Carbon Dioxide (22-32) mmol/L Anion Gap (2-11) mmol/L BUN (6-24) mg/dL Creatinine (0.67-1.17) mg/dL Est GFR ( Amer) (>60) Est GFR (Non-Af Amer) (>60) BUN/Creatinine Ratio (8-20) Glucose (70-100) mg/dL POC Glucose (mg/dL) (70-100) mg/dL Lactic Acid (0.5-2.0) mmol/L Calcium (8.6-10.3) mg/dL Total Bilirubin (0.2-1.0) mg/dL AST (13-39) U/L ALT (7-52) U/L Alkaline Phosphatase (34-104) U/L Troponin I (<0.04) ng/mL Total Protein (6.4-8.9) g/dL Albumin (3.2-5.2) g/dL Globulin (2-4) g/dL Albumin/Globulin Ratio (1-3) TSH (0.34-5.60) mcIU/mL Urine Color Kassy Urine Appearance Cloudy Urine pH 5.0 (5-9) Ur Specific [place] 1.016 (1.010-1.030) Urine Protein 2+(100 mg/dl) H (Negative) Urine Ketones Negative (Negative) Urine Blood 3+ H (Negative) Urine Nitrate Negative (Negative) Urine Bilirubin Negative (Negative) Urine Urobilinogen Negative (Negative) Ur Leukocyte Esterase Negative (Negative) Urine WBC (Auto) 1+(6-10/hpf) H (Absent) Urine RBC (Auto) Trace(0-2/hpf) (Absent) Urine Bacteria Absent (Absent) Hyaline Casts Present H (Absent) Urine Glucose 1+(50 mg/dl) H (Negative) Urine Opiates Screen (None Detect) Ur Barbiturates Screen (None Detect) Ur Phencyclidine Scrn (None Detect) Ur Amphetamines Screen (None Detect) U Benzodiazepines Scrn (None Detect) Urine Cocaine Screen (None Detect) U Cannabinoids Screen (None Detect) Serum Alcohol (<10) mg/dL Assess/Plan/Problems-Billing Mr Pressley is a 61 yo M currently incarcerated at [facility] who has a h/o HTN and type II DM who was brought to the ER for lethargy and confusion. - Patient Problems (1) Altered mental state Current Visit: Yes Status: Acute Code(s): R41.82 - ALTERED MENTAL STATUS, UNSPECIFIED SNOMED Code(s): 012043805 Comment: Unclear what has led to his AMS. The patient's mental status is much better today. He however developed a fever overnight. Will check pCXR and urinalysis. Send flu swab. Will monitor today for further fever and if stable without fever today will plan on getting the patient back to the [facility] tomorrow. (2) Type II diabetes mellitus Current Visit: Yes Status: Acute Comment: The patient received a reduced dose of lantus last night and despite that he still was hypoglycemic this am. Will split his lantus dose. Monitor blood sugars through today and tomorrow AM. (3) HTN (hypertension) Current Visit: Yes Status: Acute Code(s): I10 - ESSENTIAL (PRIMARY) HYPERTENSION SNOMED Code(s): 75558342 Comment: BP now appearing to be under decent control. Continue to monitor. (4) STAN (acute kidney injury) Current Visit: Yes Status: Acute Code(s): N17.9 - ACUTE KIDNEY FAILURE, UNSPECIFIED SNOMED Code(s): 24866120 Comment: Likely pre-renal as the patient's creatinine normalized with IVF hydration. Renal ultrasound negative for obstruction. (5) DVT prophylaxis Current Visit: Yes Status: Acute Code(s): FNR1082 - SNOMED Code(s): 350486580 Comment: SQ heparin (6) Full code status Current Visit: Yes Status: Acute Code(s): Z78.9 - OTHER SPECIFIED HEALTH STATUS SNOMED Code(s): 460705362
[2017-04-29 12:20] LABS: Urine Appearance Cloudy; Urine Blood 3+ (Negative); Urine Color Yellow; Urine Ketones Negative (Negative); Urine Protein 2+(100 mg/dL) (Negative); Urine Specific Gravity 1.019 (1.010-1.030); Urine Urobilinogen Negative (Negative)
[2017-04-29 12:34] LABS: Hematocrit 29 % (42-52); Hemoglobin 8.9 g/dl (14.0-18.0); Mean Corpuscular HGB Conc 30 g/dl (31-36); Mean Corpuscular Hemoglobin 19 pg (27-31); Mean Corpuscular Volume 62 fL (80-94); Mean Platelet Volume 9 um3 (7.4-10.4); Platelet Count 179 10^3/ul (150-450); Red Blood Count 4.73 10^6/ul (4.0-5.4); Red Cell Distribution Width 24 % (10.5-15); White Blood Count 12.9 10^3/ul (3.5-10.8)
[2017-04-29] MEDS: Insulin GLARGINE(*) 1 UNITS UNIT SUBCUT SCH (12:50)
[2017-04-29] MEDS: Acetaminophen TAB* 325 MG PO PRN (12:50)
[2017-04-29 12:53] LABS: EGFR Non-African American 88.3 (>60)
--- NOTE | 2017-04-29 14:30 | RAD ---
Indication: Cough. Hypertension. Lethargy. Comparison: No relevant prior exams available on the [facility] PACS for comparison. Technique: Upright AP 1245 hours Report: Mild prominence of the interstitial markings and patchy alveolar opacities. Negative for pleural effusion or pneumothorax. Upper normal heart size. Unremarkable central pulmonary vasculature and mediastinal contours. IMPRESSION: The constellation of findings suggests potential bronchopneumonia.
[2017-04-29] MEDS ORDERED: Insulin GLARGINE(*) 1 UNITS UNIT SUBCUT SCH (21:00)
[2017-04-30] MEDS: Heparin VIAL(*) 5000 UNITS/ML VIAL (FIVE THOUSAND) SUBCUT SCH (06:03)
[2017-04-30] MEDS: Insulin LISPRO* 1 UNITS UNIT SUBCUT SCH ×2 (07:39→12:42)
[2017-04-30] MEDS: amLODIPine TAB* 5 MG PO SCH (09:21)
[2017-04-30] MEDS: Insulin GLARGINE(*) 1 UNITS UNIT SUBCUT SCH (09:21)
[2017-04-30] MEDS: Docusate CAP* 100 MG PO SCH (09:24)
[2017-04-30] MEDS ORDERED: Amoxicillin/Clavulanate TAB* 875 MG PO ONE (10:29)
[2017-04-30 11:35] VITALS: BP 147/52
[2017-04-30] MEDS: Acetaminophen TAB* 325 MG PO PRN (11:45)
--- NOTE | 2017-04-30 12:04 | DS ---
CC: [facility]; ; Dr. Royer Reid * DISCHARGE SUMMARY: DATE OF ADMISSION: 04/27/17 DATE OF DISCHARGE: 04/30/17 DISCHARGE DIAGNOSES: 1. Altered mental status, suspected due to dehydration, acute renal failure and possibility of hypoglycemia that resolved. 2. Acute kidney injury due to dehydration, resolved. 3. Episodes of hypoglycemia, resolved. 4. Febrile illness, possibility of pneumonia. SECONDARY DIAGNOSES: 1. History of diabetes type 2. 2. Hypertension. 3. History of unknown source of hepatitis in the past. 4. History of positive purified protein derivative. 5. The patient was noted to have a heart murmur that he stated he had in the past that needs to be followed up with an outpatient transthoracic echocardiogram. 6. The patient also has microcytic anemia that he has had in the past, and the workup that included iron level, ferritin, and TIBC levels that were drawn at this hospital, are still pending at the time of dictation. LABORATORY DATA AND STUDIES PERFORMED DURING THE HOSPITAL STAY: Include: On 05/16, sodium 135, potassium 3.1, chloride 100, carbon dioxide 30, BUN 15, creatinine 0.88. CBC: White blood cell count 12.9, hemoglobin 8.9, hematocrit 29, platelets of 179, MCV of 62. Renal ultrasound obtained on 04/27/17. Impression: "Increased echogenicity of the renal cortices can be seen in the setting of medical renal disease. No obstructive calculi noted in the left kidney." Portable chest x-ray. Impression: "The constellation of findings suggest potential bronchopneumonia." Brain CT obtained at admission. Impression: "CT findings are remarkably stable , chronic microvascular disease without CTA evidence of acute intracranial abnormality." MEDICATIONS AT DISCHARGE: Include: 1. Amlodipine 10 mg daily. 2. Augmentin 500 mg b.i.d. for 7 days total. 3. Zyrtec 10 mg daily. 4. Colace 200 mg daily. 5. Insulin glargine 30 units subcutaneously in p.m. and 15 units in a.m. 6. Potassium chloride 60 mEq daily. Medications that were discontinued are metformin and lisinopril. The patient's Lantus dose was changed. HOSPITALIZATION COURSE: Tim Pressley is a 61-year-old male with a history of diabetes, presented to the hospital from [facility], which he is a resident of with altered mental status. The patient was noted to have acute kidney injury with creatinine level of 1.8 on admission. His urinalysis was questionable for infection, but so far no cultures were resulted yet. His infectious workup included CT of the brain, which did not show any marked changes. Influenza testing that was negative. The patient had a chest x-ray that showed possibility of pneumonia. He continued to have intermittent fevers throughout his hospital stay, and at discharge, he was placed on Augmentin for possibility of bronchopneumonia. With acute kidney injury, the lisinopril was held and the patient was placed on intravenous hydration. With the increasing creatinine, metformin was held and was not restarted. The patient had episodes of hypoglycemia in the morning and his insulin doses were adjusted from 54 units of Lantus nightly to 30 units at night and 15 in the morning. His metformin is going to be held. On exam, the patient was noted to have a heart murmur and stated that he has had an echocardiogram "from [id number] in the past." At this point, the recommendation is to have a repeat echocardiogram as outpatient for routine followup of heart murmur. The patient also was noted to have severely microcytic anemia. I suspect it may be chronic and related to either sickle cell trait or thalassemia. The patient had an MCV noted in December 2016 when it was also very low, that was prior to the patient's current admission. His hemoglobin had actually improved from prior. Admission was recommended from his primary care provider at [facility] for approximately 2 to 5 days. PHYSICAL EXAM AT TIME OF DISCHARGE: Blood pressure of 121/49, heart rate 73 and regular, respiratory rate 16, oxygen saturation 98% on room air, temperature 98.7. General: This is a very pleasant 61-year-old male who is in no acute distress. Alert, awake, and oriented x3. HEENT: Head atraumatic and normocephalic. Eyes: Pupils are equal, reactive to light and accommodation. Oropharynx clear. Mucosa moist. Neck: Supple. No JVD. No bruit bilaterally. Cardiovascular: Regular rate and rhythm. No murmur. Respiratory : A 3/6 systolic ejection murmur noted on auscultation of the entire precordium. Abdomen: Soft, nontender. Bowel sounds present in all 4 quadrants. Extremities: There is no edema. Pulses are +2 bilaterally. No clubbing, no cyanosis. Neuro Evaluation: Speech is clear. Cranial nerves II through XII grossly intact. Motor strength is 5/5 bilaterally. Please note that this is a short summary of the patient's hospital stay. Please refer to further medical records for details. TIME SPENT: Approximately 55 minutes was spent on the patient's discharge. [id number]/[facility] #: [id number] [facility] HOSPITALJavier
== END 2017-04-30 14:45 | DRG 460 ==
LOC: ED 09:35 → EEVIPCON 15:05 → MED 15:05 → OBSVTOIN 04-28 09:00 → AA 04-29 13:37 → MED 04-29 13:38
PROVIDERS: ADMIT Hospitalist; ATTEND Internal Medicine
DX: N17.9 Acute kidney failure, unspecified (principal); J18.9 Pneumonia, unspecified organism; E11.649 Type 2 diabetes mellitus with hypoglycemia without coma; R41.82 Altered mental status, unspecified; E86.0 Dehydration; I10 Essential (primary) hypertension; R01.1 Cardiac murmur, unspecified; Z79.84 Long term (current) use of oral hypoglycemic drugs; Z79.4 Long term (current) use of insulin; Z79.899 Other long term (current) drug therapy
CPT/HCPCS: 36415; 70450; 71010; 76775; 80048; 80053; 80307; 80320; 81003; 81015; 82140; 82728; 83540; 83550; 83605; 84443; 84484; 85025; 85027; 85610; 87077; 87086; 87186; 87502; 93005; A9270-GY; G0378; G0480; J1644